=== PATIENT | female | born 1970 | race Caucasian/White ===

== ENCOUNTER 2025-05-20 08:31 | Emergency (ER) | payer MEDICARE, OTHER, SELFPAY ==
[2025-05-20 09:09] VITALS: BP 132/93
[2025-05-20] MEDS: DECADRON 10 MG IV (09:20)
[2025-05-20] MEDS: PEPCID 20 MG IV (09:20)
[2025-05-20] MEDS: ADRENALIN 0.3 MG IM (09:20)
[2025-05-20 09:23] LABS: Hematocrit 41.5 % (37.0-47.0); Hemoglobin 14.0 g/dL (12.0-16.0); Mean Corp Hgb Conc. 33.7 g/dL (33.0-37.0); Mean Corpuscular Volume 84.9 fL (81.0-99.0); Nucleated Red Blood Cells % 0 %; Platelet Count 222 10^3/uL (130-400); Red Cell Dist. Width 13.0 % (11.5-14.5)
[2025-05-20 09:54] LABS: ALT (SGPT) 11 U/L (0-35); AST (SGOT) 16 U/L (14-36); Albumin 4.4 g/dl (3.5-5.0); Alkaline Phosphatase 53 U/L (38-126); Blood Urea Nitrogen 22 mg/dl (7-17); Calcium 9.6 mg/dl (8.4-10.2); Carbon Dioxide 29 mmol/L (22-30); Chloride 99 mmol/L (98-107); Glucose 80 mg/dl (70-99); Potassium 4.0 mmol/L (3.5-5.1); Sodium 134 mmol/L (135-145); Total Protein 7.4 g/dl (6.3-8.2); eGFR 48.56
[2025-05-20 10:00] VITALS: BP 124/76
--- NOTE | 2025-05-20 10:07 | ED.GENMED ---
History of Present Illness
General
Chief Complaint: Allergic Reaction
Source: patient
Exam Limitations: none
Time Seen by Provider: 05/20/25 08:49
Nursing documentation reviewed up to this point in time: agreed with
History of Present Illness
History of Present Illness:
see MDM
Review of Systems
Review of Systems
Allergies reviewed?: Yes
All Other Systems: Not applicable
Phy Exam
Physical Exam
Physical Exam:
GENERAL: Alert , in no apparent distress
face: moderate facial swelling, erythema, dry scaly skin
EYE: pupils equal and reactive , eoms intact, some puffiness of eyelids
NECK: Supple
ENT: o/p clr, mmm.
CARDIAC: Regular rate and rhythm .
LUNGS: Clear breath sounds bilaterally, no acute respiratory distress, no wheezes/rales/rhonchi
ABDOMEN: Soft, without focal tenderness, no r/g, no cvat, normal bowel sounds
NEUROLOGICAL: Alert and oriented, no focal neuro deficits
SKIN: Warm and dry, skin intact.
MUSCULOSKELETAL: No edema, well perfused. neg luisito's sign
PSYCH: Normal and appropriate interaction.
Course
Orders/Labs/Results
Orders:
Orders
05/20/25 09:02
Dexamethasone Sod Phosphate [Decadron] 10 mg IV NOW STA
EPINEPHrine PF [Adrenalin] 0.3 mg IM NOW STA
05/20/25 09:04
Famotidine [Pepcid] 20 mg IV NOW STA
05/20/25 09:14
Complete Blood Count/With Diff Urgent
Comprehensive Metabolic Panel Urgent
05/20/25 10:42
Clindamycin HCl [Cleocin] 300 mg PO NOW STA
05/20/25 10:55
Doxycycline [Vibramycin] 100 mg PO NOW STA
Abnormal Lab Results
05/20/25
09:14
Absolute Monos (auto) 0.9 H 10^3/uL
(0.1-0.6)
Monocytes % 9.4 H %
(1.7-9.3)
Sodium 134 L mmol/L
(135-145)
BUN 22 H mg/dl
(7-17)
Creatinine 1.3 H mg/dL
(0.6-1.0)
05/20/25 09:14
05/20/25 09:14
Vital Signs
Initial and Last Documented VS:
Initial Vital Signs
Temp Pulse Resp Pulse Ox
37.0 C 90 18 97
05/20/25 08:37 05/20/25 08:37 05/20/25 08:37 05/20/25 08:37
Last Documented Vital Signs
Temp Pulse Resp BP Pulse Ox
37.0 C 92 16 124/74 99
05/20/25 08:37 05/20/25 11:00 05/20/25 11:00 05/20/25 11:00 05/20/25 11:00
MDM/Problems Addressed
Differential Diagnosis Includes:
see MDM
MDM/Problems Addressed:
Note:
CHIEF COMPLAINT(S)
Severe skin reaction possibly due to paint fumes exposure.
HISTORY OF PRESENT ILLNESS
The patient is a 54-year-old female who recently moved into a newly painted apartment and subsequently developed a severe skin reaction. She has a history of eczema, which usually flares during certain times of the year. The symptoms began a week
ago with mild irritation on Sunday, which she initially managed with cetirizine and topical cream. By 5 days ago, the condition worsened, with facial swellingprompting her to visit an urgent care facility, where she was prescribed prednisone.
Despite this treatment, her symptoms have persisted, characterized by dryness, discomfort, and occasional itching. She reported no prior need for epinephrine use. She denies experiencing nausea, vomiting, diarrhea, difficulty breathing, or
significant swallowing issues, although notes mild nonspecific tongue sensation. Appetite reduction was noted despite being on prednisone, which usually increases her hunger. The patient denies any known history of lupus or other autoimmune
disorders and has no cardiac issues. She also reports being warm frequently.
The paint fumes exposure seems to be the likely trigger, as per her friends observation and her history of a similar, albeit less severe, reaction a few years back when in a room undergoing painting.
SOCIAL DETERMINANTS AFFECTING HEALTH
The patient continues to reside in the newly painted apartment, with windows open for ventilation.
MEDICATIONS
- Cetirizine as needed
- Lexapro
- Prednisone 35 mg daily (one dose remaining)
- [id number] antihistamines occasionally
REVIEW OF SYSTEMS
- Skin: Severe dryness, discomfort, occasional itching. No known flare-up of eczema at the moment.
- Gastrointestinal: Slight loss of appetite without nausea, vomiting, or diarrhea.
- General: Frequent warmth even in cool weather, absence of fever or chills.
PHYSICAL EXAM
- Skin: Face rash documented with photo for medical records. Significant dryness observed.
- Tongue: Mild nonspecific sensation but no difficulty swallowing.
- General: Patient communicates without acute distress.
- Nursing notes reviewed and vital signs reviewed.
PROBLEM LIST
- Acute:
- Severe skin reaction likely due to paint fumes exposure.
- Inadequate response to current prednisone regimen.
- Chronic:
- History of eczema.
PLAN
- Consideration of administering epinephrine in a controlled setting.
- Increase and adjust the tapering of prednisone to manage the inflammatory response effectively.
- Establish intravenous access and conduct laboratory tests to assess for any additional systemic involvement.
- Monitor and document the progression of the skin reaction, with follow-up scheduled if necessary.
DIFFERENTIAL DIAGNOSIS
The Differential Diagnosis includes, in no particular order and is not limited to:
- Acute eczema flare
- Allergic contact dermatitis
- Atopic dermatitis exacerbation
- Secondary skin infection
- Systemic allergic reaction
- Pityriasis rosea
- Psoriasis flare
- Drug-induced photoallergy
- Inflammatory dermatosis
- Urticaria due to inhalant exposure
CARE-UPDATE
05/20/25 - 10:42
Patient presents with reduced facial redness but persistent swelling which is not worse. Differential diagnosis includes contact dermatitis, possibly linked to recent exposure to nail dip powder or detergent switch, though infection cannot be
entirely ruled out. Laboratory results show normal white blood cell count and no fever, reducing the likelihood of infection. Initiated treatment includes an extended taper of prednisone, starting with 50 mg daily, reducing every three days, and
initiating clindamycin to cover possible staph and strep infections due to patients allergies to penicillin and Bactrim. Advised patient to avoid potential allergens, wash linens with a clear and free detergent, and apply Vaseline to maintain skin
moisture as a preventive barrier against dryness. Patient instructed to return if symptoms worsen, particularly with any involvement of eyes or respiratory symptoms. An Epipen prescription is provided as a precaution, but severe allergic reaction is
unlikely. Continue to monitor symptoms, particularly facial redness, and seek care if condition deteriorates.
*Pulse Oximetry
SaO2: 97
Oxygen Mode of Delivery: Room air
Patient hypoxic: no (99)
*Critical Care Note
Total Time (30-74mins, 75-104mins- exclusive of procedures): Not Applicable
ED Attending Note
-
Portions of this chart may have been created with voice recognition software.� Occasional wrong word or��sound alike� substitutions may have occurred due to the inherent limitations of voice recognition software.
Discharge Plan
Departure
Patient Disposition: Home (Routine Discharge)
Date of Disposition: 05/20/25
Time of Disposition: 10:48
Patient with high blood pressure during this ER visit?: No
Condition: Fair
Covid-19: Not Applicable
Discharge Problem:
Contact dermatitis, Facial swelling
Instructions: Dermatitis ( Contact )
Prescriptions:
New
prednisone 10 mg Tablet
See Rx Instructions .ROUTE .COMPLEX Qty: 45 0RF
Rx Instructions:
Take By Mouth:
50 mg daily x3 days, 40 mg daily x3 days,
30 mg daily x3 days, 20 mg daily x3 days,
10 mg daily x3 days
doxycycline hyclate 100 mg capsule
100 mg PO BID Qty: 14 0RF
No Action
diphenhydramine HCl [Benadryl] 25 mg Capsule
25 mg PO TID PRN (Reason: itching)
escitalopram oxalate [Lexapro] 10 mg Tablet
10 mg PO DAILY
Referrals:
NONE,* [Family Provider, Internal Medicine]
Activity Restrictions/Additional Instructions:
Were not entirely sure of your symptoms causes, it could be something you are putting on your skin. Because of the redness we will go to treat you with an antibiotic to make sure that this is not potentially going to get worse with steroids. The
antibiotic is doxycycline2 times a day for 7 days.
Regarding your steroids you were given a dose here so you can start your taper tomorrow. It is 50 mg once a day for 3 days, then 40 mg once a day for 3 days, then 30 mg once a day for 3 days, then 20 mg once a day for 3 days, and then 10 mg once a
day for 3 days.
You should consider seeing a straightedge man. This could be a severe eczema reaction
Apply Vaseline or Aquaphor to your skin to protect it
So that it does not dry out. Avoid soaps on your face. Change your detergent.
Have a low threshold to return for worsening swelling, any airway problems, vomiting or diarrhea.
I did write you a prescription for an EpiPen should you get suddenly worse you could use this and call 911.
Interventions
Interventions:
*Risk Screen - Suicide Last Done: 05/20/25 08:37
*General Assessment Last Done: 05/20/25 09:00
*Neglect/Abuse Screening Last Done: 05/20/25 08:37
*ED COVID-19 Vaccine History Last Done: 05/20/25 08:42
*ED Influenza Vaccine History Last Done: 05/20/25 08:42
[facility] Fall Risk Assessment Tool Last Done: 05/20/25 09:00
*Nursing Disposition Last Done: 05/20/25 11:19
ED- Cardiac Assessment Last Done: 05/20/25 09:00
ED- Pulmonary Assessment Last Done: 05/20/25 09:00
ED-Skin Assessment Last Done: 05/20/25 09:00
Discharge Date and Time
Discharge Date/Time: 05/20/25 11:20
Print Language: CROATIAN
[2025-05-20 11:00] VITALS: BP 124/74
[2025-05-20] MEDS: VIBRAMYCIN 100 MG PO (11:04)
== END 2025-05-20 11:20 | disposition home or self-care (01) ==
LOC: EMR 08:31
PROVIDERS: Physician Assistant; EMERGENCY PHYSICIAN Student in an Organized Health Care Education/Training Program
DX: L25.9 Unspecified contact dermatitis, unspecified cause (principal)
CPT/HCPCS: 99284; 96374; 96375; 96372; 80053; 85025